=== PATIENT | male | born 1995 | race Caucasian/White ===

== ENCOUNTER 2018-08-10 21:44 | Emergency (ER) | payer OTHER ==
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
[2018-08-10 23:05] VITALS: BP 117/75
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
== END 2018-08-10 23:03 | disposition home or self-care (01) ==
LOC: ED 21:44
DX: Z04.1 Encounter for examination and observation following transport accident (principal); S80.212A Abrasion, left knee, initial encounter; S60.512A Abrasion of left hand, initial encounter; S60.511A Abrasion of right hand, initial encounter; S50.312A Abrasion of left elbow, initial encounter; S50.311A Abrasion of right elbow, initial encounter; V23.4XXA Motorcycle driver injured in collision with car, pick-up truck or van in traffic accident, initial encounter; Y93.89 Activity, other specified; Y92.410 Unspecified street and highway as the place of occurrence of the external cause
CPT/HCPCS: 73130; 73562; 99283; 99284

== ENCOUNTER 2019-02-04 20:21 | Emergency (ER) | payer OTHER ==
[2019-02-04] MEDS ORDERED: ALBUTEROL SULFATE 2.5 MG/3 ML AMPUL.NEB NEB ONE (21:06)
--- NOTE | 2019-02-04 21:08 | ED Physician Documentation ---
Upper Respiratory Symptoms - HISTORIAN Historian: patient - HPI Stated Complaint: cough, generalized aches Chief Complaint: Upper Respiratory Symptoms Onset: days ago (2) Associated Symptoms: runny nose, sinus drainage, sore throat, productive cough. denies: fever, chills, earache, sinus pain, hoarseness, allergy, shortness of breath, hurts to breathe - ROS CONST/EYES: denies: weakness, eye redness, eye itching, other CVS/RESP: none LYMPH: denies: leg swelling, rash, swollen glands, ankle swelling, other GI/: none NEURO/PSYCH: denies: fainting, dizziness, confusion, anxiety, depression, other - PAST HX Lung Disease: none Allergies/Adverse Reactions: Allergies Allergy/AdvReac Type Severity Reaction Status Date / Time lactose Allergy Verified 08/10/18 22:14 Home Medications: Ambulatory Orders Medication Instructions Recorded Albuterol Sulfate [Proair HFA] 1 inh IH Q4H PRN #1 hfa.[email or web address] 02/04/19 Benzonatate [Tessalon] 200 mg PO TID PRN #30 capsule 02/04/19 - SOCIAL HX Smoking History: cigarettes (1 ppd) - FAMILY HX Family History: denies: none - VITAL SIGNS Vital Signs: Vital Signs Temp Pulse Resp BP Pulse Ox 99.7 F H 102 H 16 119/70 95 02/04/19 20:47 02/04/19 20:47 02/04/19 20:47 02/04/19 20:47 02/04/19 20:47 - REVIEWED ASSESSMENTS Nursing Assessment Reviewed: Yes Vitals Reviewed: Yes ED Results Lab/Radiology - Orders Orders: ED Orders Category Date Time Status INFLUENZA A&B Stat Lab 02/04/19 20:44 Ordered Rapid Strep [GRP A STREP SCREEN] Stat Lab 02/04/19 Ordered Albuterol Sulfate [Ventolin Soln] Med 02/04/19 21:06 Once 2.5 mg NEB NOW ONE Upper Respiratory Symptoms - EXAM General Appearance: mild distress EENT: eyes nml inspection, nml ENT inspection, lids & conjunct. nml, PERRL, ear nml, nose nml, pharynx nml, airway nml, pharyngeal erythema (mild) Respiratory: no resp. distress, no pain on inspiration, speaks full sentences, wheezes (faint posterior expiriatory wheeze), no pleuritic chest pain Abdomen: non-tender, no organomegaly, nml bowel sounds, no distention CVS: reg rate & rhythm, heart sounds normal, equal pulses, no murmur, no gallop, PMI nml, no JVD, no friction rub, 24 Skin: color nml, no rash, warm,dry Extremities: non-tender, normal range of motion, no evidence of injury, no edema, J, RESP THER Neuro/Psych: oriented x3, neuro intact, mood/affect nml, CN's nml as tested Discharge Clincal Impression: URI (upper respiratory infection) Prescriptions: Albuterol Sulfate [Proair HFA] 1 inh IH Q4H PRN #1 hfa.aer.ad PRN Reason: Wheezing Benzonatate [Tessalon] 200 mg PO TID PRN #30 capsule PRN Reason: Cough Referrals: Ching Delaney, PRN [Primary Care Provider] - 2 Days Additional Instructions: Stop smoking You have an upper respiratory virus. A virus is not treated with antibiotics. central supply assistant an over the counter decongestant such as pseudoped, dayquil and Nyquil at your pharmacy. Treat your symptoms with over the counter medication. You may want to try Vicks rub on your chest and/or feet Cough drops as needed for cough and sore throat. Increase your fluid intake juices, hot tea, non-caffeinated beverages Use a humidifier in the room where you sleep. You can also sit in a steam filled bathroom 1-2 times a day. Tylenol or Ibuprofen as needed for fever, pain and body aches. central supply assistant your prescriptions at [facility] in the morning. Condition: Stable Disposition: 01 HOME, SELF-CARE Decision to Admit: NO Decision Time: 21:21
[2019-02-04 21:38] VITALS: BP 104/60
== END 2019-02-04 21:30 | disposition home or self-care (01) ==
LOC: ED 20:21
DX: J06.9 Acute upper respiratory infection, unspecified (principal); F17.210 Nicotine dependence, cigarettes, uncomplicated
CPT/HCPCS: 87400; 87880; 94640; 99283